=== PATIENT | female | born 1950 | race Caucasian/White ===

== ENCOUNTER 2021-12-14 08:51 | Day surgery (SDC) | payer MEDICARE, BC ==
[~2021-12-14] VITALS: Ht 170.2 cm; Wt 78.0 kg
[~2021-12-14 08:51] MED LIST: ONDA4TAB6 PO
[2021-12-14] MEDS ORDERED: normal saline 1000ml 1,000 ML IV PRN (09:15)
[2021-12-14 09:40] VITALS: BP 176/110
[2021-12-14] MEDS ORDERED: MULT-1085 PO (10:15)
[2021-12-14] MEDS ORDERED: VIT1CAPS46 PO (10:18)
[2021-12-14] MEDS ORDERED: heparin sodium, porcine/PF 100unit/ml 5ML syringe ONE (10:55)
[2021-12-14] MEDS ORDERED: LIDOcaine 1% W/epiNEPHrine 1:100,000 20ml vial ONE (10:55)
[2021-12-14] MEDS ORDERED: midazolam 1 mg/ML 2ml injection ONE (10:56)
[2021-12-14] MEDS ORDERED: fentaNYL/PF 50MCG/1 ML 2ML syringe ONE (10:56)
[2021-12-14] MEDS ORDERED: diphenhydrAMINE 50 mg/ml inj ONE (11:15)
[2021-12-14 12:00] VITALS: BP 163/88
[2021-12-14 12:15] VITALS: BP 162/76
[2021-12-14 12:30] VITALS: BP 149/68
== END 2021-12-14 12:40 | disposition home or self-care (01) ==
LOC: SSTAY O 08:51
PROVIDERS: ATTEND Preventive Medicine Aerospace Medicine
DX: C50.412 Malignant neoplasm of upper-outer quadrant of left female breast (principal)
CPT/HCPCS: 36561; 76937; 77001; 99152; C1769; C1788; C1894; J1200; J1642; J2250; J3010; J3490; 99153